=== PATIENT | male | born 1960 | race African-American/Black ===

== ENCOUNTER 2022-01-12 10:32 | Inpatient (IN) | payer MEDICARE, MEDICAID ==
[~2022-01-12] VITALS: Ht 180.3 cm; Wt 78.9 kg
[2022-01-12 11:26] LABS: BASOPHILS % 0.9 % (0.0-2.0); HEMATOCRIT. 43.4 % (42.0-52.0); HEMOGLOBIN. 14.2 g/dL (14.0-18.0); LYMPHOCYTES % 23.1 % (20.0-50.0); MEAN CORPUSCULAR HEMOGLOBIN 26.9 pg (28.0-32.0); MEAN CORPUSCULAR VOLUME 82.3 fL (80.0-94.0); MEAN PLATELET VOLUME 9.6 fl (7.4-10.4); MONOCYTES % 9.3 % (2.0-8.0); NEUTROPHILS % 65.7 % (40.0-76.0); PLATELET 156 x1000/uL (130-400); RED BLOOD CELL COUNT 5.27 mill/uL (4.7-6.1); RED CELL DISTRIBUTION WIDTH 15.7 % (11.6-14.6)
[2022-01-12 11:36] LABS: CHLORIDE 109 mEq/L (98-107)
[2022-01-12] MEDS ORDERED: ASPIRIN 325MG EC TABLET PO ONE (14:45)
[2022-01-12] MEDS ORDERED: NITROGLYCERIN OINT 1GM/INCH UDPKT TD ONE (14:45)
[2022-01-12] MEDS ORDERED: NITROGLYCERIN OINT 1GM/INCH UDPKT TD NR (17:00)
[2022-01-12] MEDS ORDERED: ASPIRIN 325MG EC TABLET PO NR (17:00)
[2022-01-12 18:20] VITALS: BP 153/83
[2022-01-12] MEDS ORDERED: HYDR-4009 MT (19:39)
[2022-01-12 20:00] VITALS: BP 130/80
[2022-01-12] MEDS ORDERED: MORPHINE SULFATE 2 MG/ML CPJ (NOT FOR IM USE) IV PRN (20:15)
[2022-01-12] MEDS ORDERED: HYDROCODONE/ACETAMINOPHEN 10/325MG TABLET PO PRN (20:15)
[2022-01-12] MEDS ORDERED: HYDRALAZINE 20MG/ML VIAL IV PRN (20:15)
[2022-01-12] MEDS ORDERED: NALOXONE HCL 0.4MG/ML VIAL IV PRN (20:30)
[2022-01-13] VITALS: BP 128/70
[2022-01-13 04:00] VITALS: BP 132/87
[2022-01-13 07:26] LABS: BASOPHILS % 0.3 % (0.0-2.0); EOSINOPHILS % 1.8 % (0.0-5.0); HEMATOCRIT. 42.8 % (42.0-52.0); HEMOGLOBIN. 13.5 g/dL (14.0-18.0); LYMPHOCYTES % 32.8 % (20.0-50.0); MEAN CORPUSCULAR HEMOGLOBIN 26.2 pg (28.0-32.0); MEAN CORPUSCULAR VOLUME 82.9 fL (80.0-94.0); MEAN PLATELET VOLUME 10.4 fl (7.4-10.4); MONOCYTES % 10.3 % (2.0-8.0); NEUTROPHILS % 54.8 % (40.0-76.0); PLATELET 149 x1000/uL (130-400); RED BLOOD CELL COUNT 5.16 mill/uL (4.7-6.1); RED CELL DISTRIBUTION WIDTH 15.5 % (11.6-14.6)
[2022-01-13 08:00] VITALS: BP 120/85
[2022-01-13 08:42] LABS: CHLORIDE 108 mEq/L (98-107)
[2022-01-13] MEDS: ENOXAPARIN 40MG/0.4ML SYR SUBCUT SCH (08:47)
[2022-01-13 12:00] VITALS: BP 145/91
[2022-01-13 16:00] VITALS: BP 124/80
[2022-01-13] MEDS ORDERED: REGADENOSON 0.4 MG/5 ML IV NR (16:00)
[2022-01-13] MEDS: AMLODIPINE 10MG TABLET PO SCH (16:29)
[2022-01-13 20:00] VITALS: BP 135/87
[2022-01-14] VITALS: BP 130/81
[2022-01-14 04:00] VITALS: BP 136/89
[2022-01-14 07:22] LABS: BASOPHILS % 0.6 % (0.0-2.0); EOSINOPHILS % 1.6 % (0.0-5.0); HEMATOCRIT. 43.3 % (42.0-52.0); HEMOGLOBIN. 14.1 g/dL (14.0-18.0); LYMPHOCYTES % 40.4 % (20.0-50.0); MEAN CORPUSCULAR HEMOGLOBIN 26.6 pg (28.0-32.0); MEAN CORPUSCULAR VOLUME 81.7 fL (80.0-94.0); MEAN PLATELET VOLUME 10.9 fl (7.4-10.4); MONOCYTES % 10.6 % (2.0-8.0); NEUTROPHILS % 46.8 % (40.0-76.0); PLATELET 149 x1000/uL (130-400); RED CELL DISTRIBUTION WIDTH 15.4 % (11.6-14.6)
[2022-01-14 07:37] LABS: CHLORIDE 106 mEq/L (98-107)
[2022-01-14 08:00] VITALS: BP 141/83
[2022-01-14] MEDS ORDERED: REGADENOSON 0.4 MG/5 ML IV ONE (08:10)
[2022-01-14] MEDS: AMLODIPINE 10MG TABLET PO SCH (10:49)
[2022-01-14] MEDS: ENOXAPARIN 40MG/0.4ML SYR SUBCUT SCH (10:49)
[2022-01-14 12:00] VITALS: BP 135/79
[2022-01-14 16:00] VITALS: BP 130/60
[2022-01-14 20:00] VITALS: BP_SYST 111; BP_SYST 132; BP_DIAS 68; BP_DIAS 77
[2022-01-15] VITALS: BP 130/71
[2022-01-15 04:00] VITALS: BP 139/83
[2022-01-15 06:25] LABS: CHLORIDE 107 mEq/L (98-107)
[2022-01-15 06:26] LABS: BASOPHILS % 0.8 % (0.0-2.0); EOSINOPHILS % 2.3 % (0.0-5.0); HEMATOCRIT. 42.2 % (42.0-52.0); HEMOGLOBIN. 13.7 g/dL (14.0-18.0); LYMPHOCYTES % 42.4 % (20.0-50.0); MEAN CORPUSCULAR HEMOGLOBIN 26.4 pg (28.0-32.0); MEAN CORPUSCULAR VOLUME 81.3 fL (80.0-94.0); MONOCYTES % 10.7 % (2.0-8.0); NEUTROPHILS % 43.8 % (40.0-76.0); PLATELET 150 x1000/uL (130-400); RED BLOOD CELL COUNT 5.19 mill/uL (4.7-6.1); RED CELL DISTRIBUTION WIDTH 15.6 % (11.6-14.6)
[2022-01-15] MEDS ORDERED: IODIXANOL 320MG/ML 100 ML BOTTLE IV ONE (07:35)
[2022-01-15] MEDS ORDERED: VERAPAMIL HCL 2.5 MG/1 ML 2ML VIAL IV ONE (07:35)
[2022-01-15] MEDS ORDERED: HEPARIN 1000 UNITS/ML 10ML ONE (07:35)
[2022-01-15] MEDS ORDERED: FENTANYL CITRATE/PF 50MCG/ML 2ML VIAL ONE (07:35)
[2022-01-15] MEDS ORDERED: MIDAZOLAM HCL 2 MG/2 ML VIAL ONE (07:36)
[2022-01-15] MEDS ORDERED: LIDOCAINE HCL 1% 10 MG/ML 10ML VIAL ONE (07:36)
[2022-01-15 08:00] VITALS: BP 125/75
[2022-01-15] MEDS ORDERED: DIPHENHYDRAMINE 50MG/ML VIAL ONE (08:34)
[2022-01-15] MEDS: AMLODIPINE 10MG TABLET PO SCH (09:00)
[2022-01-15] MEDS: ENOXAPARIN 40MG/0.4ML SYR SUBCUT SCH (09:00)
[2022-01-15] MEDS ORDERED: SODIUM CHLORIDE 0.45% 250 ML IV ONE (10:00)
[2022-01-15] MEDS ORDERED: ATROPINE SULFATE 1MG/10ML SYR IV PRN (10:00)
[2022-01-15] MEDS ORDERED: METOPROLOL SUCCINATE 50MG ER TABLET PO SCH (10:00)
[2022-01-15] MEDS ORDERED: NITROGLYCERIN 50MCG/ML 10ML VIAL (CATH LAB) IV ONE (11:00)
[2022-01-15] MEDS ORDERED: NICARDIPINE 100MCG/ML 10ML VIAL (CATH LAB) IV ONE (11:00)
[2022-01-15 12:00] VITALS: BP 101/74
[2022-01-15 14:26] VITALS: BP 101/74
[2022-01-21] MEDS ORDERED: METO-396 MT (17:47)
== END 2022-01-15 15:55 | disposition home or self-care (01) | DRG 287 ==
LOC: ER 11:06 → ENRESERV 17:44 → 8WST 18:26
PROVIDERS: ADMIT Internal Medicine; ATTEND Internal Medicine
PROC: 3E033HZ Introduction of Radioactive Substance into Peripheral Vein, Percutaneous Approach (ICD-10-PCS; 2022-01-14)
PROC: 4A02XM4 Measurement of Cardiac Total Activity, External Approach (ICD-10-PCS; 2022-01-14)
PROC: 4A023N7 Measurement of Cardiac Sampling and Pressure, Left Heart, Percutaneous Approach (ICD-10-PCS; principal; 2022-01-15)
PROC: B211YZZ Fluoroscopy of Multiple Coronary Arteries using Other Contrast (ICD-10-PCS; 2022-01-15)
DX: I25.110 Atherosclerotic heart disease of native coronary artery with unstable angina pectoris (principal); I16.0 Hypertensive urgency; I49.1 Atrial premature depolarization; F17.210 Nicotine dependence, cigarettes, uncomplicated; Z20.822 Contact with and (suspected) exposure to COVID-19; G89.29 Other chronic pain; M25.519 Pain in unspecified shoulder; I10 Essential (primary) hypertension
CPT/HCPCS: 36415; 71045; 78452; 80048; 80053; 83880; 84484; 85025; 87426; 93017; 93306; 93458; 99291; A9500; C1769; C1887; C1893; J1200; J1644; J1650; J2250; J2785; J3010; J3490; Q9967